=== PATIENT | male | born 1975 | race Caucasian/White ===

== ENCOUNTER 2020-04-06 16:05 | Emergency (ER) | payer OTHER ==
[~2020-04-06] VITALS: Ht 180.3 cm; Wt 108.1 kg
--- OUTSIDE RECORDS SUMMARY | 2020-04-06 16:10 | CCD ---
Author Author [facility] Address Unknown Phone Unavailable Support Name Relationship Address Phone UE Next Of Kin Unknown Unavailable GARCIA Next Of Kin [address] [place] [address] DEIDRA JAY Next Of Kin [address] [place], [place] [id number] Re-disclosure Warning The records that you are about to access may contain information from federally-assisted alcohol or drug abuse programs. If such information is present, then the following federally mandated warning applies: This information has been disclosed to you from records protected by federal confidentiality rules (42 CFR part 2). The federal rules prohibit you from making any further disclosure of this information unless further disclosure is expressly permitted by the written consent of the person to whom it pertains or as otherwise permitted by 42 CFR part 2. A general authorization for the release of medical or other information is NOT sufficient for this purpose. The Federal rules restrict any use of the information to criminally investigate or prosecute any alcohol or drug abuse patient.The records that you are about to access may contain highly sensitive health information, the redisclosure of which is protected by Article 27-F of the [facility] Public Health law. If you continue you may have access to information: Regarding HIV / AIDS; Provided by facilities licensed or operated by the [facility] Office of Mental Health; or Provided by the [facility] Office for People With Developmental Disabilities. If such information is present, then the following [facility] mandated warning applies: This information has been disclosed to you from confidential records which are protected by state law. State law prohibits you from making any further disclosure of this information without the specific written consent of the person to whom it pertains, or as otherwise permitted by law. Any unauthorized further disclosure in violation of state law may result in a fine or custodial sentence or both. A general authorization for the release of medical or other information is NOT sufficient authorization for further disc losure. Medications Medication Brand Name Start Date Product Form Dose Route Admi nistrative Instructions Pharmacy Instructions Status Indications Reaction Description Data Source(s) 250 mg 05/17/2019 12:00:00 AM EDT tablet 6 TAKE TWO TABLETS BY MOUTH AT ONCE ON THE FIRST DAY THEN TAKE ONE DAILY THEREAFTER TAKE TWO TABLETS BY MOUTH AT ONCE ON THE FIRST DAY THEN TAKE ONE DAILY THEREAFTER SOLD: 05/17/2019 [facility] 20 mg 05/17/2019 12:00:00 AM EDT tablet 10 TAKE TWO TABLETS BY MOUTH EVERY DAY FOR 5 DAYS TAKE TWO TABLETS BY MOUTH EVERY DAY FOR 5 DAYS SOLD: 020 [facility] Insurance Providers Payer name Policy type / Coverage type Policy ID Covered libertarian ID Covered libertarian's relationship to liao Policy Liao Plan Information 'S ADMINISTRATION [id number] SP [id number] [facility] O [id number] S [id number] [facility] [id number] SP [id number] [place] [facility] P [id number] S [id number] P UNAVAILABLE UNAVAILA BLE
[2020-04-06] MEDS ORDERED: LEVO-89 PO (16:25)
[2020-04-06] MEDS ORDERED: GABA-1171 PO (16:25)
[2020-04-06] MEDS ORDERED: ARIP1TAB PO (16:25)
[2020-04-06] MEDS ORDERED: HYDR-3713 PO (16:25)
[2020-04-06] MEDS ORDERED: HYDR25TAB PO (16:25)
[2020-04-06] MEDS ORDERED: BACL1TAB9 PO (16:25)
[2020-04-06] MEDS ORDERED: EFFE150C2 PO (16:25)
[2020-04-06] MEDS ORDERED: QUET5TAB PO (16:25)
[2020-04-06] MEDS ORDERED: NS 1,000 ML IV ONE (17:15)
[2020-04-06 17:48] LABS: BASO # 0.1 10^3/uL (0.0-0.2); BASO % 0.9 % (0.0-1.0); EOS # 0.8 10^3/uL (0.0-0.5); EOS % 6.1 % (0.0-3.0); HEMATOCRIT 42.6 % (42.0-52.0); HEMOGLOBIN 17.9 g/dl (13.5-17.5); LYMPH # 2.9 10^3/uL (1.5-5.0); LYMPH % 22.7 % (24.0-44.0); MEAN CORPUSCULAR HEMOGLOBIN 28.6 pg (27.0-33.0); MEAN CORPUSCULAR VOLUME 84.4 fl (80.0-96.0); MONO # 1.5 10^3/uL (0.0-0.8); MONO % 11.7 % (0.0-5.0); NEUTROPHILS # 7.4 10^3/uL (1.5-8.5); NEUTROPHILS % 57.8 % (36.0-66.0); PLATELET COUNT, AUTOMATED 271 10^3/uL (150-450); RED BLOOD COUNT 5.05 10^6/uL (4.30-6.10); WHITE BLOOD COUNT 12.9 10^3/uL (4.0-10.0)
[2020-04-06 17:49] LABS: MEAN CORPUSCULAR HGB CONC 34.2 g/dl (32.0-36.5)
--- NOTE | 2020-04-06 17:51 | REP ---
INDICATION: cough, shortness of breath, exp wheeze throughout. COMPARISON: 11/14/2014 FINDINGS: The superior mediastinal structures are midline. The cardiac silhouette is unremarkable in size, shape, and position. The diaphragmatic surfaces of the lungs are regular, and the costophrenic angles are clear. The pulmonary lieberman are clear. The imaged osseous structures are intact. IMPRESSION: There is no acute cardiopulmonary disease. <Electronically signed by Mono Suero > 04/06/20 [id number]
[2020-04-06 18:10] LABS: BILIRUBIN,DIRECT 0.1 MG/DL (0.0-0.2); CK-MB VALUE MASS < 1.0 NG/ML (<3.6); CPK CREATINE PHOSPHOKINASE 127 U/L (39-308); LIPASE 180 U/L (73-393); MAGNESIUM LEVEL 1.9 MG/DL (1.8-2.4); MB/CK RELATIVE INDEX 0.79 (< OR =4); TROPONIN I < 0.02 NG/ML (< 0.10)
--- OUTSIDE RECORDS SUMMARY | 2020-04-06 18:10 | CCD ---
Author Author [facility] Address Unknown Phone Unavailable Support Name Relationship Address Phone UE Next Of Kin Unknown Unavailable GARCIA Next Of Kin [address] [place] [address] DEIDRA JAY Next Of Kin [address] [place], [place] [id number] Re-disclosure Warning The records that you are [...] is protected by Article 27-F of the [facility] Public Health law. If you continue you may have access to information: Regarding HIV / AIDS; Provided by facilities licensed or operated by the [facility] Office of Mental Health; or Provided by the [facility] Office for People With Developmental Disabilities. If such information is present, then the following [facility] mandated warning applies: This information has been [...] law may result in a fine or care home sentence or both. A general authorization for [...] EVERY DAY FOR 5 DAYS SOLD: 020 [facility] Insurance Providers Payer name Policy type / Coverage type Policy ID Covered alliance party ID Covered alliance party's relationship to liao Policy Liao Plan Information 'S ADMINISTRATION [id number] SP [id number] [facility] O [id number] S [id number] [facility] [id number] SP [id number] [place] [facility] [id number] S [id number] P UNAVAILABLE UNAVAILA BLE
[2020-04-06 18:34] LABS: TOTAL PROTEIN 7.8 GM/DL (6.4-8.2)
[2020-04-06] MEDS ORDERED: HumuLIN R (REGULAR) INSULIN (NovoLIN R) **100U/ML** PER UNIT IV STA (19:35)
[2020-04-06 20:02] LABS: HEMOGLOBIN A1c 9.4 %
[2020-04-06] MEDS ORDERED: METF-838 PO (20:24)
[2020-04-06 20:29] VITALS: BP 138/88
--- NOTE | 2020-04-06 20:51 | ECGEPIP ---
[facility] - ED Test Date: 2020-04-06 Pat Name: NARAYAN JAY Department: Room: - Gender: Male Congressional Aide: TY : 1975 Requested By: BLESSING Rodriguez Order Number: [id number] Reading MD: Jonathan Gregory Measurements Intervals [place] Rate: 102 P: 11 DE: 150 QRS: 19 QRSD: 97 T: -4 QT: 326 QTc: 425 Interpretive Statements SINUS TACHYCARDIA SIMILAR TO 11/14/14 Electronically Signed on 04-06-2020 20:51:02 EST by Jonathan Gregory
== END 2020-04-06 20:31 | disposition home or self-care (01) ==
LOC: M ED 16:05
DX: E11.9 Type 2 diabetes mellitus without complications (principal); E87.1 Hypo-osmolality and hyponatremia; Z79.899 Other long term (current) drug therapy; Z79.84 Long term (current) use of oral hypoglycemic drugs

== ENCOUNTER → 2024-05-26 | Outpatient (CLI) | payer OTHER ==
[~2024-05-26] MED LIST: ARIP1TAB PO; BACL1TAB9 PO; EFFE150C3 PO; GABA-1171 PO; HYDR-3490 PO; HYDR-3713 PO; LEVO-89 PO; METF-838 PO; QUET50TA4 PO
== END ==
LOC: M RAD 08:58
PROVIDERS: ATTEND Nurse Practitioner Family
DX: R74.01 Elevation of levels of liver transaminase levels (principal); N23 Unspecified renal colic

== ENCOUNTER → 2024-06-03 | Outpatient (CLI) | payer OTHER ==
[2024-06-03 13:24] LABS: HEMOGLOBIN A1c 6.1 % (4.0-6.0)
[2024-06-03 13:35] LABS: ALBUMIN 3.9 G/DL (3.2-5.2); ALKALINE PHOSPHATASE 96 U/L (40-129); ALT/SGPT 63 U/L (7.0-40); AST/SGOT 37 U/L (<34); BILIRUBIN,TOTAL 0.4 MG/DL (0.3-1.2); BLOOD UREA NITROGEN 14 MG/DL (9-23); CALCIUM LEVEL 9.6 MG/DL (8.5-10.1); CARBON DIOXIDE LEVEL 29 MMOL/L (20-31); CHLORIDE LEVEL 100 MMOL/L (98-107); CHOLESTEROL LEVEL 191 MG/DL (<200); CREATININE FOR GFR 0.86 MG/DL (0.70-1.30); GLOMERULAR FILTRATION RATE > 60.0 (>60); GLUCOSE, FASTING 186 MG/DL (60-100); HDL CHOLESTEROL 34.7 MG/DL (>40); NON-HDL-C 156.3 MG/DL; POTASSIUM SERUM 4.5 MMOL/L (3.5-5.1); SODIUM LEVEL 137 MMOL/L (136-145); TOTAL PROTEIN 7.3 G/DL (5.7-8.2); TRIGLYCERIDES LEVEL 891 MG/DL (<150)
== END ==
LOC: M WUC 08:31
PROVIDERS: ATTEND Physician Assistant
DX: E11.9 Type 2 diabetes mellitus without complications (principal); I10 Essential (primary) hypertension; E78.2 Mixed hyperlipidemia

== ENCOUNTER → 2024-07-08 | Outpatient (CLI) | payer OTHER | LOC: M CARPUL 11:30 | PROVIDERS: ATTEND Physician Assistant | DX: R06.02 Shortness of breath (principal) ==

== ENCOUNTER → 2024-07-16 | Outpatient (CLI) | payer OTHER | LOC: M PLAIMG 09:48 | PROVIDERS: ATTEND Physician Assistant | DX: R06.02 Shortness of breath (principal) ==